=== PATIENT | male | born 1965 | race Caucasian/White ===

== ENCOUNTER 2023-01-06 08:41 | Emergency (ER) | payer BC, SELFPAY ==
[2023-01-06 08:47] VITALS: BP 141/90; PULSE 60; RESP 16; TEMP 36.9; O2SAT 99; BMI 27.7
--- NOTE | 2023-01-06 09:04 | ED_ITS ---
HPI - Wound/Laceration General Chief Complaint: Wound/Laceration Stated Complaint: Head injury, laceration Time Seen by Provider: 01/06/23 08:50 Source: patient Mode of arrival: Ambulatory Limitations: no limitations History of Present Illness HPI narrative: Patient is a 57-year-old male. He is on anticoagulation secondary to atrial fibrillation after having a cardioversion. He is here for evaluation of an inju ry that he sustained when he bumped his head on the trunk door of his car. It was bleeding. He reports no other injuries from the event. He did cover with a bandage. No loss of consciousness. No neck pain. Review of Systems Constitutional Constitutional: Reports system reviewed and no additional complaints, except as documented Integumentary/Breasts Skin/Breast: Reports system reviewed and no additional complaints, except as documented Neurologic Neurologic: Reports system reviewed and no additional complaints, except as documented Hematologic/Lymphatic On Anticoagulants: Yes Exam Initial Vital Signs Initial Vital Signs: Vital Signs Temperature 98.4 F 01/06/23 08:47 Pulse Rate 60 01/06/23 08:47 Respiratory Rate 16 01/06/23 08:47 Blood Pressure 141/90 H 01/06/23 08:47 Pulse Oximetry 99 01/06/23 08:47 Oxygen Delivery Method Room Air 01/06/23 08:47 HENMT Head: laceration Skin Other: 2 cm laceration on the right-sided parietal region of his scalp. No active bleeding. Neuro General: patient alert, patient awake, patient oriented x3 and moves all extremities Procedures Laceration Repair Laceration 1: Site: scalp Side (If applicable): right Size (cm): 2 Description: linear Depth: simple, single layer Local Anesthetic: lidocaine 1% and with epi Amount of anesthesia used (mL): 3 Pre-repair: wound explored and deep structures intact Skin layer closed with: becky Course Orders Ordered: Discontinued Medications Lidocaine/Epinephrine (Lidocaine 2% W/Epi Inj) 20 ml INJ INTRA-OP ONE Stop: 01/06/23 08:53 Vital Signs Vital signs: Vital Signs - 8 hr 01/06/23 08:47 Temperature 98.4 F Pulse Rate 60 Respiratory Rate 16 Blood Pressure 141/90 H Pulse Oximetry 99 Oxygen Delivery Method Room Air MDM - Wound/Laceration MDM Narrative Medical decision making narrative: Given his presenting injury in his exam we will hold on any radiologic studies for now. He has a superficial scalp laceration that does require becky. This was performed as described above. He was given care instructions and return precautions. He expressed understanding and agreement with plan. Discharge Plan Departure Patient Disposition: Home Clinical Impression: Laceration of scalp Instructions: DI for Laceration Repair -- [place] Activity Restrictions/Additional Instructions: You can shower like normal. You can use soap and water and shampoo. Be sure that your careful when your combing her hair. The becky do need to be removed in 7-10 days. You can go to the walk-in clinic or your primary doctor for this. Return to the emergency department for new or worsening symptoms. Stand Alone Forms: Patient Portal/API
[2023-01-06] MEDS: LIDOCAINE 2% W/EPI INJ 20 ML INJ (09:07)
== END 2023-01-06 09:09 | disposition home or self-care (01) ==
PROVIDERS: Emergency Provider Emergency Medicine
DX: S01.01XA Laceration without foreign body of scalp, initial encounter (principal); W22.09XA Striking against other stationary object, initial encounter
CPT/HCPCS: 12001; 99283